=== PATIENT | female | born 1985 ===

== ENCOUNTER 2020-11-20 15:10 | Outpatient (REF) | payer BC, MEDICAID, SELFPAY | END 2020-11-20 15:11 | disposition home or self-care (01) | LOC: NCHCN 15:10 | PROVIDERS: Visit Provider Nurse Practitioner Family | DX: L02.828 Furuncle of other sites (principal) | CPT/HCPCS: 87077; 87070; 87186; 87205 ==

== ENCOUNTER 2021-06-03 19:34 | Outpatient (REF) | payer BC, MEDICAID, SELFPAY ==
[2021-06-05 14:32] LABS: COVID-19 RT-PCR UVMMC Result Positive (Negative)
== END 2021-06-03 19:35 | disposition home or self-care (01) ==
LOC: NCHCN 19:34
PROVIDERS: Visit Provider Nurse Practitioner Family
DX: Z20.822 Contact with and (suspected) exposure to COVID-19 (principal)
CPT/HCPCS: U0003

== ENCOUNTER 2024-10-25 13:54 | Outpatient (REF) | payer BC, SELFPAY ==
[2024-10-25 20:58] LABS: HCT 37.6 % (36.0-46.0); HGB 12.6 g/dL (11.2-15.7); MCHC 33.5 % (32.0-36.0); MCV 92 fL (80-95); MPV 10.6 fL (8.0-11.0); Platelet Count 329 10^3/uL (130-400); RBC 4.07 10^6/uL (3.93-5.22); RDW 12.4 % (11.7-14.6); RDW-SD 42.1 fL; WBC 7.23 10^3/uL (4.4-10.8)
[2024-10-25 21:20] LABS: ALT 32 U/L (14-59); AST 29 U/L (15-37); Alkaline Phosphatase 58 U/L (46-116); Anion Gap 7.5 mmol/L (3-11); BUN 10 mg/dL (7-18); Bilirubin, Total 0.4 mg/dL (0.2-1.0); CO2 25.5 mmol/L (21.0-32.0); CREATININE 0.8 mg/dL (0.55-1.02); Calcium 9.2 mg/dL (8.5-10.1); Calculated LDL 88 mg/dL (<100); Chloride 104 mmol/L (98-107); Cholesterol 181 mg/dL (<200); Estimated GFR 97.26 (mL/min/1.73m2); Glucose 97 mg/dL (74-106); HDL Cholesterol 85 mg/dL (>or=50); Sodium 137 mmol/L (136-145); TSH 0.84 uIU/mL (0.36-3.74); Total Protein 7.2 g/dL (6.4-8.2); Triglyceride 44 mg/dL (<150)
[2024-10-25 21:21] LABS: Hemoglobin A1C 5.2 % (<5.7)
[2024-10-27 10:45] LABS: HIV-1/2 Ag & Ab Screen Negative (Negative)
[2024-10-27 10:52] LABS: Hepatitis C Ab w Rflx HCV PCR Negative (Negative)
== END 2024-10-25 13:55 | disposition home or self-care (01) ==
LOC: NCHCN 13:54
PROVIDERS: Visit Provider Nurse Practitioner Family
DX: Z00.00 Encounter for general adult medical examination without abnormal findings (principal); K21.9 Gastro-esophageal reflux disease without esophagitis; E66.3 Overweight; Z13.0 Encounter for screening for diseases of the blood and blood-forming organs and certain disorders involving the immune mechanism; Z13.29 Encounter for screening for other suspected endocrine disorder; Z13.220 Encounter for screening for lipoid disorders; Z13.1 Encounter for screening for diabetes mellitus; Z11.3 Encounter for screening for infections with a predominantly sexual mode of transmission
CPT/HCPCS: 80053; 80061; 85027; 86803; 87389; 83036; 84443